=== PATIENT | female | born 1980 | race Caucasian/White ===

== ENCOUNTER → 2017-12-28 16:41 | Outpatient (CLI) | payer BC, SELFPAY ==
[2017-12-28 17:34] LABS: Absolute Lymphocyte Count 2.42 X10^3/ul (0.83-4.51); Absolute Neutrophil Count 3.5 X10^3/uL (2.0-7.7); Basophil# 0.02 X10^3/uL; Basophil% 0.3 % (0-1); Eosinophil# 0.19 X10^3/uL; Eosinophils% 2.9 % (0-5); Hematocrit 39.9 % (37-47); Hemoglobin 13.1 g/dl (12.0-15.0); Lymphocyte # 2.42 X10^3/ul (4.0); Lymphocyte % 37.2 % (19-41); Mean Corp Hgb Conc 32.8 g/gl (32-36); Mean Corpuscular Hgb 32.3 pg (27.0-32.0); Mean Corpuscular Volume 98.5 fL (81-99); Mean Platelet Vol. 8.9 fl (6.2-12.0); Monocyte# 0.35 X10^3/uL; Monocyte% 5.4 % (0-10); Neutrophil # 3.51 X10^3/uL (2.7-7.7); Platelet Count 332 K/mm3 (150-450); RBC Distribution Width SD 47.4 fl (35.1-43.9); Red Blood Count 4.05 M/mm3 (4.2-5.4); White Blood Count 6.5 K/mm3 (4.4-11.0)
[2017-12-28 17:42] LABS: POSITIVE COUNT NO; POSITIVE DIFFERENTIAL NO; POSITIVE MORPHOLOGY NO
[2017-12-28 18:02] LABS: AST(SGOT) 15 U/L (15-37); Alanine Aminotransfer ALT/SGPT 18 U/L (13-56); Albumin, Serum 3.7 g/dL (3.2-5.0); Alkaline Phosphatase 49 U/L (45-117); Anion Gap 9 (5-15); BUN 14 mg/dL (7-18); BUN/Creat Ratio 17.3 RATIO (10-20); CRP 7.88 mg/L (0.0-3.0); Calcium,Total 8.8 mg/dL (8.5-10.1); Chloride 107 mmol/L (98-107); Creatinine, Serum 0.81 mg/dL (0.55-1.02); EST Glomerular Filtration Rate 85 mL/min (>60); Est Glom Filt Rate - Afr Amer 103 mL/min (>60); Globulin 3.8 g/dL (2.2-4.2); Glucose 128 mg/dL (74-106); Potassium 3.8 mmol/L (3.5-5.1); Protein, Total 7.5 g/dL (6.4-8.2); Sodium Level 142 mmol/L (136-145)
[2017-12-28 18:45] LABS: Erythrocyte Sedimentation Rate 4 mm/hr (0-20)
[2018-01-01 12:23] LABS: Anti-Cardiolipin Ab, IgA, Qn < 9 APL U/mL (0-11); Anti-Cardiolipin Ab, IgG, Qn < 9 GPL U/mL (0-14); Anti-Cardiolipin Ab, IgM, Qn 19 MPL U/mL (0-12)
== END ==
PROVIDERS: Family Provider Family Medicine; PCP Family Medicine; Visit Provider Internal Medicine Rheumatology
DX: L40.59 Other psoriatic arthropathy (principal); L40.8 Other psoriasis; R76.0 Raised antibody titer
CPT/HCPCS: 36415; 80053; 85025; 85652; 86140; 86147

== ENCOUNTER → 2018-03-18 13:52 | Outpatient (CLI) | payer BC, SELFPAY ==
--- NOTE | 2018-03-18 14:01 | ECHOD_ITS ---
Reason For Study: Murmur Procedure This was a 2D Doppler, Color Flow transthoracic echocardiogram. The exam was of adequate technical quality. Exam performed in department. Left Ventricle Normal LV size. Left ventricular systolic function is normal. The estimated ejection fraction is 70 %. Normal diastology for age. No regional wall motion abnormalities noted. Right Ventricle Normal RV size. Normal systolic function. Atria Normal left atrium. Normal right atrium. No doppler evidence for ASD. Mitral Valve There is no mitral annular calcification. Normal mitral valve. Trivial mitral valve insufficiency. Tricuspid Valve Normal tricuspid valve. Trivial tricuspid valve insufficiency. Right ventricular systolic pressure estimated to be 28 mmHg. Aortic Valve Trisinus/trileaflet aortic valve. Normal aortic valve. Pulmonic Valve The pulmonic valve is not well visualized. Great Vessels Normal sized aortic root. Pericardium/Pleural No pericardial effusion. MMode/2D Measurements & Calculations LVIDd: 4.1 cm IVSd: 0.88 cm Ao root diam: 2.7 cm LVIDs: 2.6 cm LVPWd: 0.87 cm LA dimension: 3.1 cm FS: 36.9 % LAV(MOD-bp): 41.8 ml LA A4 area: 17.6 cm2 RA A4 area: 12.1 cm2 LAV(MOD-bp) Indexed: 24.4 ml/m2 LAV(MOD-sp2): 33.6 ml LAV(MOD-sp4): 48.3 ml Time Measurements MV dec time: 0.23 sec Doppler Measurements & Calculations MV E max jhonatan: 119.2 cm/sec Lat Peak E' Jhonatan: 16.5 cm/sec Med Peak E' Jhonatan: 14.7 cm/sec MV A max jhonatan: 85.7 cm/sec E/E' lat: 7.2 E/E' med: 8.1 MV E/A: 1.4 MV V2 max: 128.3 cm/sec MV P1/2t max jhonatan: 127.6 cm/sec Ao V2 max: 178.7 cm/sec MV max P.6 mmHg MV P1/2t: 86.4 msec Ao max P.8 mmHg MV V2 mean: 73.8 cm/sec MV dec slope: 432.3 cm/sec2 Ao V2 mean: 104.8 cm/sec MV mean P.6 mmHg MVA(P1/2t): 2.5 cm2 Ao mean P.3 mmHg MV V2 VTI: 31.5 cm Ao V2 VTI: 29.8 cm LV V1 max: 139.5 cm/sec PA V2 max: 137.7 cm/sec TR max jhonatan: 249.6 cm/sec LV V1 max P.8 mmHg TR max P.9 mmHg LV V1 mean P.8 mmHg LV V1 mean: 89.9 cm/sec LV V1 VTI: 27.2 cm Interpretation Summary Left ventricular systolic function is normal. The estimated ejection fraction is 70 %. Trivial mitral valve insufficiency. Trivial tricuspid valve insufficiency. Right ventricular systolic pressure estimated to be 28 mmHg. Normal diastology for age. Ordering Physician: Sandro Kohler Referring Physician: DOCTOR, OUT OF TOWN Performed By: Brodwolf, Felix, RCS
== END ==
PROVIDERS: Family Provider Family Medicine; PCP Family Medicine
DX: I35.8 Other nonrheumatic aortic valve disorders (principal)
CPT/HCPCS: 93306

== ENCOUNTER 2018-05-11 14:29 | Emergency (ER) | payer BC, SELFPAY ==
[2018-05-11 14:30] VITALS: BP 163/99; PULSE 115; RESP 20; TEMP 37.3; O2SAT 99; BMI 27.3
--- NOTE | 2018-05-11 14:47 | ED.VISSUMM ---
- ER Visit Summary Date of Service: 05/11/18 Chief Complaint: beesting to the lip History of Present Illness: The patient is a 37 F who presents 1 hour after a bee sting to the upper lip. Patient was drinking canned beverage and a bee within it. The bee stung her on the inside of the lip, and she noted it was a yellow jacket. She is having significant swelling of the lip and right cheek. She denies any sensation of her tongue or throat swelling, shortness of breath, lightheadedness or dizziness, wheezing, urticaria, pruritus, chest pain, nausea or vomiting. She has no history of anaphylaxis to bee stings. She has history of psoriatic arthritis, psoriasis, and lupus. Physical Examination: Vital signs: afebrile, hemodynamically stable, no hypoxia on room air General: well nourished, well developed, in no distress Skin: warm, dry, no rash, no pallor no urticaria HEENT: normocephalic and atraumatic; PERRL, EOMI, significant edema to the upper lip and right lower lip, right cheek. No edema in the intraoral space, sublingual, posterior oropharynx, or tongue. Airway is patent. Moist mucous membranes that lesions. Single punctate erythematous aure on the mucosal surface of the right upper lip consistent with a bee sting. Cardiovascular: Tachycardic rate and regular rhythm without murmurs, no peripheral edema, 2+ pulses all distal extremities Respiratory: No increased work of breathing, lungs are clear to auscultation bilaterally, no rales, rhonchi or wheezing Abdominal: Abdomen is soft, nontender with normoactive bowel sounds, no guarding or rebound, no masses MSK: Moves all extremities, no deformities, normal strength Neuro: Awake and alert, oriented ?4. No facial droop, sensation and motor function intact and symmetric Test Results: Medications Given Discontinued Medications Diphenhydramine HCl (Benadryl) 50 mg PO X1 ONE Stop: 05/11/18 14:48 Last Admin: 05/11/18 15:01 Dose: 50 mg Famotidine (Pepcid) 20 mg PO X1 ONE Stop: 05/11/18 14:48 Last Admin: 05/11/18 15:01 Dose: 20 mg Prednisone () 40 mg PO X1 ONE Stop: 05/11/18 14:47 Last Admin: 05/11/18 15:01 Dose: 40 mg Emergency Department Course and Treatment: Patient presents with significant facial and upper lip swelling after being stung by a yellow jacket on the inner upper lip. Patient has no airway compromise and no systemic symptoms concerning for severe allergic reaction or anaphylaxis. The swelling is simply localized to the area of the sting. Patient had ice pack applied. Patient was given Benadryl, prednisone and Pepcid. No epinephrine was necessary. Patient was observed for a period of time and had improvement in the swelling. She continued to maintain a patent airway with no other systemic symptoms of an allergic reaction. Patient was discharged home on a course of prednisone and Benadryl to use as needed. Return precautions given. Patient discharged home in improved condition. Treatment Plan: [] Disposition: [] Impression: Localized allergic reaction from yellow jacket sting, facial and lip swelling This note was generated with [employer] dictation software. It may contain incorrect words, spelling, and punctuation that were not noted in review of the chart prior to signing ED Disposition - Plan for ED Patient: Disposition: Home or Assisted Living Chief Complaint: Allergic Reaction Instructions: ED Bite Sting Insect Local Allergic React Prescriptions: DiphenhydrAMINE [Benadryl] 50 mg PO TID PRN PRN #30 cap PRN Reason: Allergies Prednisone 4 tab PO DAILY 5 Days #20 tab Referrals: Gabriela Mckeon MD [Primary Care Provider] - 1-2 Days if not improving Additional Instructions: Return immediately if at any time you begin having shortness of breath, sensation of your throat or tongue swelling, dizziness or lightheadedness, development of hives, or any worsening of your condition. Use the Benadryl and prednisone as prescribed. If you have any worsening of your condition or any new concerning symptoms, please return immediately to the emergency department for another evaluation.
[2018-05-11] MEDS: DiphenhydrAMINE 25 MG Capsule 50 MG PO (15:01)
[2018-05-11] MEDS: predniSONE 20 MG Tablet 40 MG PO (15:01)
[2018-05-11] MEDS: Famotidine 20 MG Tablet PO (15:01)
[2018-05-11 15:04] VITALS: PULSE 85; RESP 15; O2SAT 98
--- NOTE | 2018-05-11 16:35 | ED.DEP ---
ED Disposition - Plan for ED Patient: Disposition: Home or Assisted Living Chief Complaint: Allergic Reaction Instructions: ED Bite Sting Insect Local Allergic React Prescriptions: DiphenhydrAMINE [Benadryl] 50 mg PO TID PRN PRN #30 cap PRN Reason: Allergies Prednisone 4 tab PO DAILY 5 Days #20 tab Referrals: Gabriela Mckeon MD [Primary Care Provider] - 1-2 Days if not improving Additional Instructions: Return immediately if at any time you begin having shortness of breath, sensation of your throat or tongue swelling, dizziness or lightheadedness, development of hives, or any worsening of your condition. Use the Benadryl and prednisone as prescribed. If you have any worsening of your condition or any new concerning symptoms, please return immediately to the emergency department for another evaluation.
[2018-05-11 16:45] VITALS: PULSE 83; RESP 16; O2SAT 100
--- NOTE | 2018-05-11 16:46 | ED.RN ---
pt given written and verbal discharge instructions and home going prescriptions. pt verbalizes understanding. pt educated on signs and sx to return to ed. pt verbalizes understanding and is to follow up with pcp in 1-2 days.
== END 2018-05-11 16:54 | disposition home or self-care (01) ==
PROVIDERS: Emergency Provider Emergency Medicine; Family Provider Family Medicine; PCP Family Medicine
DX: T63.461A Toxic effect of venom of wasps, accidental (unintentional), initial encounter (principal); R22.0 Localized swelling, mass and lump, head; Y92.9 Unspecified place or not applicable; L40.50 Arthropathic psoriasis, unspecified
CPT/HCPCS: 99283

== ENCOUNTER → 2018-06-21 16:36 | Outpatient (CLI) | payer BC, SELFPAY ==
[2018-06-21 17:45] LABS: Absolute Lymphocyte Count 2.59 X10^3/ul (0.83-4.51); Absolute Neutrophil Count 4.4 X10^3/uL (2.0-7.7); Basophil# 0.03 X10^3/uL; Basophil% 0.4 % (0-1); Eosinophil# 0.27 X10^3/uL; Eosinophils% 3.5 % (0-5); Hemoglobin 13.1 g/dl (12.0-15.0); Lymphocyte # 2.59 X10^3/ul (4.0); Lymphocyte % 33.3 % (19-41); Mean Corp Hgb Conc 32.8 g/gl (32-36); Mean Corpuscular Hgb 33.3 pg (27.0-32.0); Mean Corpuscular Volume 101.8 fL (81-99); Mean Platelet Vol. 9.1 fl (6.2-12.0); Monocyte# 0.49 X10^3/uL; Monocyte% 6.3 % (0-10); Neutrophil # 4.38 X10^3/uL (2.7-7.7); Neutrophil % 56.4 % (47-70); Platelet Count 356 K/mm3 (150-450); RBC Distribution Width CV 13.3 % (11.6-14.6); Red Blood Count 3.93 M/mm3 (4.2-5.4); White Blood Count 7.8 K/mm3 (4.4-11.0)
[2018-06-21 17:55] LABS: International Normalized Ratio 0.9; Prothrombin Time (Protime)PT. 12.5 SECONDS (11.7-14.9)
[2018-06-21 17:56] LABS: Partial Thromboplast Time 29.6 Seconds (24.1-36.2)
[2018-06-21 17:57] LABS: POSITIVE COUNT NO; POSITIVE DIFFERENTIAL NO; POSITIVE MORPHOLOGY NO
[2018-06-21 18:06] LABS: Erythrocyte Sedimentation Rate 6 mm/hr (0-20)
[2018-06-21 18:10] LABS: ALB/GLOB Ratio 0.9 RATIO (0.9-2.4); AST(SGOT) 11 U/L (15-37); Alanine Aminotransfer ALT/SGPT 18 U/L (13-56); Albumin, Serum 3.5 g/dL (3.2-5.0); Alkaline Phosphatase 50 U/L (45-117); Anion Gap 9 (5-15); BUN 18 mg/dL (7-18); BUN/Creat Ratio 17.8 RATIO (10-20); Calcium,Total 9.1 mg/dL (8.5-10.1); Chloride 106 mmol/L (98-107); Creatinine, Serum 1.01 mg/dL (0.55-1.02); EST Glomerular Filtration Rate 65 mL/min (>60); Est Glom Filt Rate - Afr Amer 79 mL/min (>60); Globulin 3.7 g/dL (2.2-4.2); Glucose 98 mg/dL (74-106); Potassium 3.8 mmol/L (3.5-5.1); Protein, Total 7.2 g/dL (6.4-8.2); Sodium Level 142 mmol/L (136-145)
[2018-06-24 13:29] LABS: Thrombin Time 15.2 sec (0.0-23.0)
[2018-06-25 07:08] LABS: Dilute Prothrombin Time (dPT) 40.6 sec (0.0-55.0); Dilute Russell Viper Venom Mix 43.6 sec (0.0-47.0); Hexagonal Phase Phospholipid 7 sec (0-11); PTT-LA 39.4 sec (0.0-51.9); Thrombin Time 15.2 sec (0.0-23.0); dPT Confirm Ratio 1.18 Ratio (0.00-1.40)
[2018-06-25 09:35] LABS: Interpretation Comment: (.)
== END ==
PROVIDERS: Family Provider Family Medicine; PCP Family Medicine; Referring Provider Internal Medicine Rheumatology; Visit Provider Internal Medicine Rheumatology
DX: L40.59 Other psoriatic arthropathy (principal); R76.0 Raised antibody titer
CPT/HCPCS: 36415; 80053; 85025; 85598; 85610; 85652; 85670; 85730; 86140; 86147

== ENCOUNTER → 2018-06-24 16:24 | Outpatient (CLI) | payer BC, SELFPAY ==
[2018-06-27 08:11] LABS: Anti-Cardiolipin Ab, IgG, Qn < 9 GPL U/mL (0-14); Anti-Cardiolipin Ab, IgM, Qn 15 MPL U/mL (0-12)
[2018-06-27 08:12] LABS: Anti-Cardiolipin Ab, IgA, Qn < 9 APL U/mL (0-11)
== END ==
PROVIDERS: Family Provider Family Medicine; PCP Family Medicine; Referring Provider Internal Medicine Rheumatology; Visit Provider Internal Medicine Rheumatology
DX: L40.59 Other psoriatic arthropathy (principal); R76.0 Raised antibody titer
CPT/HCPCS: 86147

== ENCOUNTER → 2018-12-13 16:20 | Outpatient (CLI) | payer BC, SELFPAY ==
[2018-12-13 17:37] LABS: Absolute Lymphocyte Count 2.23 X10^3/ul (0.83-4.51); Absolute Neutrophil Count 3.9 X10^3/uL (2.0-7.7); Basophil# 0.02 X10^3/uL; Basophil% 0.3 % (0-1); Eosinophil# 0.14 X10^3/uL; Eosinophils% 2.1 % (0-5); Hematocrit 42.3 % (37-47); Hemoglobin 14.3 g/dl (12.0-15.0); Lymphocyte # 2.23 X10^3/ul (4.0); Lymphocyte % 32.8 % (19-41); Mean Corp Hgb Conc 33.8 g/gl (32-36); Mean Corpuscular Hgb 33.4 pg (27.0-32.0); Mean Corpuscular Volume 98.8 fL (81-99); Mean Platelet Vol. 9.2 fl (6.2-12.0); Monocyte# 0.44 X10^3/uL; Monocyte% 6.5 % (0-10); Neutrophil # 3.94 X10^3/uL (2.7-7.7); Platelet Count 357 K/mm3 (150-450); RBC Distribution Width CV 13.4 % (11.6-14.6); RBC Distribution Width SD 47.9 fl (35.1-43.9); Red Blood Count 4.28 M/mm3 (4.2-5.4); White Blood Count 6.8 K/mm3 (4.4-11.0)
[2018-12-13 17:48] LABS: ALB/GLOB Ratio 1.1 RATIO (0.9-2.4); AST(SGOT) 16 U/L (15-37); Alanine Aminotransfer ALT/SGPT 25 U/L (13-56); Albumin, Serum 3.9 g/dL (3.2-5.0); Alkaline Phosphatase 59 U/L (45-117); Anion Gap 7 (5-15); BUN 10 mg/dL (7-18); BUN/Creat Ratio 11.3 RATIO (10-20); Chloride 106 mmol/L (98-107); Creatinine, Serum 0.88 mg/dL (0.55-1.02); EST Glomerular Filtration Rate 76 mL/min (>60); Est Glom Filt Rate - Afr Amer 92 mL/min (>60); Globulin 3.5 g/dL (2.2-4.2); Glucose 106 mg/dL (74-106); Protein, Total 7.4 g/dL (6.4-8.2); Sodium Level 139 mmol/L (136-145)
[2018-12-13 17:53] LABS: POSITIVE COUNT NO; POSITIVE DIFFERENTIAL NO; POSITIVE MORPHOLOGY NO
[2018-12-13 18:06] LABS: Erythrocyte Sedimentation Rate 5 mm/hr (0-20)
== END ==
PROVIDERS: Family Provider Family Medicine; PCP Family Medicine; Referring Provider Internal Medicine Rheumatology; Visit Provider Internal Medicine Rheumatology
DX: L40.59 Other psoriatic arthropathy (principal); L40.8 Other psoriasis; R76.0 Raised antibody titer
CPT/HCPCS: 36415; 80053; 85025; 85652; 86140

== ENCOUNTER → 2018-12-23 08:04 | Outpatient (CLI) | payer BC, SELFPAY ==
[2018-12-23 10:14] LABS: Internal QC Validated? YES +Cl - CLEAR BKGD; Pregnancy, Urine Negative Negative
[2018-12-23 10:15] LABS: Absolute Lymphocyte Count 2.35 X10^3/ul (0.83-4.51); Absolute Neutrophil Count 5.4 X10^3/uL (2.0-7.7); Basophil# 0.02 X10^3/uL; Basophil% 0.2 % (0-1); Eosinophil# 0.11 X10^3/uL; Eosinophils% 1.3 % (0-5); Hematocrit 41.4 % (37-47); Hemoglobin 13.5 g/dl (12.0-15.0); Lymphocyte # 2.35 X10^3/ul (4.0); Mean Corp Hgb Conc 32.6 g/gl (32-36); Mean Corpuscular Hgb 32.4 pg (27.0-32.0); Mean Corpuscular Volume 99.3 fL (81-99); Mean Platelet Vol. 9.1 fl (6.2-12.0); Monocyte# 0.51 X10^3/uL; Monocyte% 6.1 % (0-10); Neutrophil # 5.36 X10^3/uL (2.7-7.7); POSITIVE COUNT NO; POSITIVE DIFFERENTIAL NO; POSITIVE MORPHOLOGY NO; Platelet Count 350 K/mm3 (150-450); RBC Distribution Width CV 13.5 % (11.6-14.6); Red Blood Count 4.17 M/mm3 (4.2-5.4); White Blood Count 8.4 K/mm3 (4.4-11.0)
[2018-12-23 10:25] LABS: AST(SGOT) 9 U/L (15-37); Alanine Aminotransfer ALT/SGPT 22 U/L (13-56); Albumin, Serum 3.5 g/dL (3.2-5.0); Alkaline Phosphatase 56 U/L (45-117); Anion Gap 8 (5-15); BUN 12 mg/dL (7-18); BUN/Creat Ratio 14.5 RATIO (10-20); Chloride 107 mmol/L (98-107); Creatinine, Serum 0.83 mg/dL (0.55-1.02); EST Glomerular Filtration Rate 82 mL/min (>60); Est Glom Filt Rate - Afr Amer 99 mL/min (>60); Globulin 3.5 g/dL (2.2-4.2); Glucose 97 mg/dL (74-106); Potassium 3.6 mmol/L (3.5-5.1); Sodium Level 141 mmol/L (136-145)
== END ==
PROVIDERS: Family Provider Family Medicine; PCP Family Medicine; Referring Provider Internal Medicine Rheumatology; Visit Provider Internal Medicine Rheumatology
DX: L40.59 Other psoriatic arthropathy (principal); L40.8 Other psoriasis; R76.0 Raised antibody titer; M79.7 Fibromyalgia
CPT/HCPCS: 36415; 80053; 81025; 85025

== ENCOUNTER → 2019-02-21 16:51 | Outpatient (CLI) | payer BC, SELFPAY ==
[2019-02-21 17:39] LABS: Absolute Lymphocyte Count 1.94 X10^3/ul (0.83-4.51); Absolute Neutrophil Count 5.1 X10^3/uL (2.0-7.7); Basophil# 0.02 X10^3/uL; Basophil% 0.3 % (0-1); Eosinophil# 0.13 X10^3/uL; Eosinophils% 1.7 % (0-5); Hematocrit 38.7 % (37-47); Hemoglobin 13.1 g/dl (12.0-15.0); Lymphocyte # 1.94 X10^3/ul (4.0); Lymphocyte % 25.5 % (19-41); Mean Corp Hgb Conc 33.9 g/gl (32-36); Mean Corpuscular Hgb 33.5 pg (27.0-32.0); Mean Platelet Vol. 9.2 fl (6.2-12.0); Monocyte# 0.41 X10^3/uL; Monocyte% 5.4 % (0-10); Neutrophil # 5.11 X10^3/uL (2.7-7.7); POSITIVE COUNT NO; POSITIVE DIFFERENTIAL NO; POSITIVE MORPHOLOGY NO; Platelet Count 362 K/mm3 (150-450); RBC Distribution Width CV 13.6 % (11.6-14.6); RBC Distribution Width SD 48.3 fl (35.1-43.9); Red Blood Count 3.91 M/mm3 (4.2-5.4); White Blood Count 7.6 K/mm3 (4.4-11.0)
[2019-02-21 18:21] LABS: ALB/GLOB Ratio 1.1 RATIO (0.9-2.4); AST(SGOT) 13 U/L (15-37); Alanine Aminotransfer ALT/SGPT 16 U/L (13-56); Albumin, Serum 3.8 g/dL (3.2-5.0); Alkaline Phosphatase 61 U/L (45-117); Anion Gap 6 (5-15); BUN 7 mg/dL (7-18); BUN/Creat Ratio 8.8 RATIO (10-20); Chloride 106 mmol/L (98-107); Creatinine, Serum 0.79 mg/dL (0.55-1.02); EST Glomerular Filtration Rate 86 mL/min (>60); Est Glom Filt Rate - Afr Amer 104 mL/min (>60); Globulin 3.4 g/dL (2.2-4.2); Glucose 114 mg/dL (74-106); Potassium 3.7 mmol/L (3.5-5.1); Protein, Total 7.2 g/dL (6.4-8.2); Sodium Level 137 mmol/L (136-145)
== END ==
PROVIDERS: Family Provider Family Medicine; PCP Family Medicine; Referring Provider Internal Medicine Rheumatology; Visit Provider Internal Medicine Rheumatology
DX: L40.59 Other psoriatic arthropathy (principal); L40.8 Other psoriasis; R76.0 Raised antibody titer; M79.7 Fibromyalgia
CPT/HCPCS: 36415; 80053; 85025

== ENCOUNTER → 2019-03-04 10:54 | Outpatient (CLI) | payer BC, SELFPAY ==
[2019-03-04 12:17] LABS: Internal QC Validated? YES +Cl - CLEAR BKGD
[2019-03-04 12:18] LABS: Pregnancy, Urine Negative Negative
== END ==
PROVIDERS: Family Provider Family Medicine; PCP Family Medicine; Referring Provider Internal Medicine Rheumatology; Visit Provider Internal Medicine Rheumatology
DX: L40.59 Other psoriatic arthropathy (principal); L40.8 Other psoriasis; R76.0 Raised antibody titer; M79.7 Fibromyalgia
CPT/HCPCS: 81025

== ENCOUNTER → 2019-05-09 11:37 | Outpatient (CLI) | payer BC, SELFPAY ==
[2019-05-09 14:27] LABS: Absolute Lymphocyte Count 2.02 X10^3/uL (0.83-4.51); Absolute Neutrophil Count 4.3 X10^3/uL (2.0-7.7); Basophil# 0.04 X10^3/uL; Basophil% 0.6 % (0-1); Eosinophil# 0.14 X10^3/uL; Hematocrit 42.2 % (37-47); Hemoglobin 13.9 g/dL (12.0-15.0); Lymphocyte # 2.02 X10^3/ul (4.0); Mean Corp Hgb Conc 32.9 g/dL (32-36); Mean Corpuscular Hgb 33.8 pg (27.0-32.0); Mean Corpuscular Volume 102.7 fL (81-99); Mean Platelet Vol. 9.1 fl (6.2-12.0); Monocyte# 0.43 X10^3/uL; Monocyte% 6.2 % (0-10); NRBC Flagged by Analyzer 0 % (0-5); Neutrophil % 61.8 % (47-70); Platelet Count 399 K/mm3 (150-450); RBC Distribution Width CV 13.7 % (11.6-14.6); RBC Distribution Width SD 51.9 fl (35.1-43.9); Red Blood Count 4.11 M/mm3 (4.2-5.4)
[2019-05-09 14:46] LABS: ALB/GLOB Ratio 0.9 RATIO (0.9-2.4); AST(SGOT) 13 U/L (15-37); Alanine Aminotransfer ALT/SGPT 25 U/L (13-56); Albumin, Serum 3.7 g/dL (3.2-5.0); Alkaline Phosphatase 63 U/L (45-117); Anion Gap 6 (5-15); BUN 11 mg/dL (7-18); BUN/Creat Ratio 12.2 RATIO (10-20); Calcium,Total 9.1 mg/dL (8.5-10.1); Chloride 104 mmol/L (98-107); EST Glomerular Filtration Rate 74 mL/min (>60); Est Glom Filt Rate - Afr Amer 90 mL/min (>60); Globulin 3.9 g/dL (2.2-4.2); Glucose 118 mg/dL (74-106); Potassium 3.9 mmol/L (3.5-5.1); Protein, Total 7.6 g/dL (6.4-8.2); Sodium Level 136 mmol/L (136-145)
== END ==
PROVIDERS: Family Provider Family Medicine; PCP Family Medicine; Referring Provider Internal Medicine Rheumatology; Visit Provider Internal Medicine Rheumatology
DX: L40.59 Other psoriatic arthropathy (principal); L40.8 Other psoriasis; R76.0 Raised antibody titer; M79.7 Fibromyalgia
CPT/HCPCS: 36415; 80053; 85025

== ENCOUNTER → 2019-07-07 16:17 | Outpatient (CLI) | payer BC, SELFPAY ==
[2019-07-07 17:54] LABS: ALB/GLOB Ratio 0.9 RATIO (0.9-2.4); AST(SGOT) 17 U/L (15-37); Alanine Aminotransfer ALT/SGPT 33 U/L (13-56); Albumin, Serum 3.6 g/dL (3.2-5.0); Alkaline Phosphatase 62 U/L (45-117); Anion Gap 7 (5-15); BUN 10 mg/dL (7-18); BUN/Creat Ratio 12.4 RATIO (10-20); Calcium,Total 9.4 mg/dL (8.5-10.1); Chloride 104 mmol/L (98-107); Creatinine, Serum 0.81 mg/dL (0.55-1.02); EST Glomerular Filtration Rate 84 mL/min (>60); Est Glom Filt Rate - Afr Amer 102 mL/min (>60); Glucose 101 mg/dL (74-106); Potassium 3.7 mmol/L (3.5-5.1); Protein, Total 7.6 g/dL (6.4-8.2); Sodium Level 138 mmol/L (136-145)
[2019-07-07 17:59] LABS: Absolute Lymphocyte Count 2.43 X10^3/uL (0.83-4.51); Basophil# 0.04 X10^3/uL; Basophil% 0.7 % (0-1); Eosinophil# 0.11 X10^3/uL; Eosinophils% 1.8 % (0-5); Hematocrit 40.3 % (37-47); Hemoglobin 13.2 g/dL (12.0-15.0); Lymphocyte # 2.43 X10^3/ul (4.0); Mean Corp Hgb Conc 32.8 g/dL (32-36); Mean Corpuscular Hgb 33.5 pg (27.0-32.0); Mean Corpuscular Volume 102.3 fL (81-99); Mean Platelet Vol. 8.8 fl (6.2-12.0); Monocyte# 0.44 X10^3/uL; Monocyte% 7.2 % (0-10); NRBC Flagged by Analyzer 0 % (0-5); Neutrophil # 3.04 X10^3/uL (2.7-7.7); POSITIVE MORPHOLOGY YES; Platelet Count 444 K/mm3 (150-450); RBC Distribution Width CV 13.4 % (11.6-14.6); RBC Distribution Width SD 50.6 fl (35.1-43.9); Red Blood Count 3.94 M/mm3 (4.2-5.4); White Blood Count 6.1 K/mm3 (4.4-11.0)
[2019-07-07 18:06] LABS: Differential Indicated SCAN CRITERIA MET
[2019-07-07 18:40] LABS: Differential Comment SCANNED; Macrocytosis 1+; Platelet Estimate ADEQUATE (ADEQ); Reactive Lymphocyte 1+
== END ==
PROVIDERS: Family Provider Family Medicine; PCP Family Medicine; Referring Provider Internal Medicine Rheumatology; Visit Provider Internal Medicine Rheumatology
DX: L40.59 Other psoriatic arthropathy (principal); Z79.899 Other long term (current) drug therapy; M79.7 Fibromyalgia
CPT/HCPCS: 36415; 80053; 85025

== ENCOUNTER → 2019-08-05 10:17 | Outpatient (CLI) | payer BC, SELFPAY | PROVIDERS: Family Provider Family Medicine; PCP Family Medicine; Visit Provider Family Medicine | DX: R73.09 Other abnormal glucose (principal) | CPT/HCPCS: 83036 ==

== ENCOUNTER → 2019-08-25 09:48 | Outpatient (CLI) | payer BC, SELFPAY ==
[2019-08-25 13:58] LABS: T4 Total, Thyroxin 10.6 ug/dL (4.8-13.9); Thyroid Stim Hormone (TSH) 2.32 uIU/mL (0.358-3.74)
== END ==
PROVIDERS: Family Provider Family Medicine; PCP Family Medicine; Referring Provider Family Medicine; Visit Provider Family Medicine
DX: E03.9 Hypothyroidism, unspecified (principal)
CPT/HCPCS: 36415; 84436; 84443

== ENCOUNTER → 2020-02-02 11:48 | Outpatient (CLI) | payer BC, SELFPAY ==
[2020-02-02 17:14] LABS: Hemoglobin A1c 5.4 % (3.8-5.6)
== END ==
PROVIDERS: PCP Family Medicine; Referring Provider Family Medicine; Visit Provider Family Medicine
DX: R73.09 Other abnormal glucose (principal)
CPT/HCPCS: 36415; 83036

== ENCOUNTER → 2020-02-11 06:47 | Outpatient (CLI) | payer BC, SELFPAY ==
[2020-02-11 07:58] LABS: Glucose GTT- Fasting 103 mg/dL (74-106)
[2020-02-11 08:00] LABS: Glucose GTT-30 minutes 219 mg/dL (110-170)
[2020-02-11 08:12] LABS: Glucose GTT- 1 Hour 171 mg/dL (120-170)
[2020-02-11 09:38] LABS: Glucose GTT- 2 Hour 127 mg/dL (70-120)
[2020-02-11 10:59] LABS: Glucose GTT- 3 Hour 74 mg/dL (74-106)
[2020-02-11 11:57] LABS: Glucose GTT- 4 Hour 63 mg/dL (74-106)
== END ==
PROVIDERS: PCP Family Medicine; Referring Provider Family Medicine; Visit Provider Family Medicine
DX: R55 Syncope and collapse (principal)
CPT/HCPCS: 36415; 82951; 82952

== ENCOUNTER → 2020-04-12 12:37 | Outpatient (CLI) | payer BC, SELFPAY ==
[2020-04-12 15:49] LABS: AST(SGOT) 15 U/L (15-37); Alanine Aminotransfer ALT/SGPT 20 U/L (13-56); Albumin, Serum 3.8 g/dL (3.2-5.0); Alkaline Phosphatase 34 U/L (45-117); Anion Gap 5 (5-15); BUN 12 mg/dL (7-18); BUN/Creat Ratio 14.7 RATIO (10-20); Bilirubin, Direct 0.12 mg/dL (0.00-0.30); Calcium,Total 9.2 mg/dL (8.5-10.1); Chloride 107 mmol/L (98-107); Creatinine, Serum 0.82 mg/dL (0.55-1.02); EST Glomerular Filtration Rate 82 mL/min (>60); Est Glom Filt Rate - Afr Amer 100 mL/min (>60); Globulin 3.6 g/dL (2.2-4.2); Glucose 96 mg/dL (74-106); Protein, Total 7.4 g/dL (6.4-8.2); Sodium Level 138 mmol/L (136-145)
[2020-04-12 18:25] LABS: Hematocrit 41.2 % (37-47); Hemoglobin 13.6 g/dL (12.0-15.0); Mean Corpuscular Hgb 32.9 pg (27.0-32.0); Mean Corpuscular Volume 99.5 fL (81-99); Mean Platelet Vol. 9.7 fl (6.2-12.0); Platelet Count 367 K/mm3 (150-450); RBC Distribution Width CV 13.5 % (11.6-14.6); Red Blood Count 4.14 M/mm3 (4.2-5.4); White Blood Count 6.3 K/mm3 (4.4-11.0)
== END ==
PROVIDERS: PCP Family Medicine
DX: Z79.899 Other long term (current) drug therapy (principal)
CPT/HCPCS: 36415; 80048; 80076; 85027

== ENCOUNTER → 2020-05-06 06:28 | Outpatient (CLI) | payer BC, SELFPAY ==
[2020-04-29 14:02] VITALS: BMI 27.3
--- NOTE | 2020-05-06 06:29 | MRI_ITS ---
STUDY: MRI BRAIN WITH AND WITHOUT CONTRAST REASON FOR EXAM: Female, 39 years old. syncope, episodes TECHNIQUE: Standardized multiplanar fat and water weighted pulse sequences were obtained. IV Yes YES was administered for the contrast portion of the examination. COMPARISON: None. FINDINGS: Normal size of the ventricles and extra-axial spaces for the patient''s age. There are multiple scattered nonspecific tiny punctate white matter lesions in the frontal and parietal lobes bilaterally without mass effect or restricted diffusion. Normal bilateral basal ganglia. Normal thalami. There is no extra-axial fluid accumulation. Normal flow voids within the major intracranial circulation suggesting patency by spin echo criteria. Normal venous enhancement. There is no enhancing intra-axial or extra-axial abnormality. Normal sella turcica, pituitary gland, infundibular stalk, optic chiasm and hypothalamus. Normal tectal plate and pineal gland. Normal midbrain, airam and medulla. Normal cerebellum. Normal basal cisterns. Normal bilateral temporal bones. Normal bilateral internal auditory canals. No demonstrated orbital abnormality, within the constraints of a routine brain study. Normal visualized paranasal sinuses. Normal calvarium and skull base. Normal visualized soft tissue structures. Normal visualized upper cervical spine. MRI/Brain W/WO Contrast IMPRESSION: Nonspecific periventricular white matter disease.. Etiology is indeterminate. Differential diagnosis includes small vessel ischemic changes, demyelinating disease, inflammatory disease including Lyme disease or prior posttraumatic bland contusions. Clinical correlation recommended No enhancing lesions following contrast administration. Electronically Signed: Hadley Dietz MD at 16:34 EDT , Service support ,
== END ==
PROVIDERS: PCP Family Medicine; Referring Provider Psychiatry & Neurology Neurology; Visit Provider Psychiatry & Neurology Neurology
DX: R55 Syncope and collapse (principal)
CPT/HCPCS: 70553; A9575

== ENCOUNTER → 2020-05-14 06:36 | Outpatient (CLI) | payer BC, SELFPAY ==
[2020-04-29 14:02] VITALS: BMI 27.3
[2020-05-14 07:48] LABS: Cholesterol 224 mg/dL (200); High Density Lipoprotein 40 mg/dL; Triglycerides 173 mg/dL; Very Low Density Lipoprotein 35 mg/dL (5-40)
== END ==
PROVIDERS: Nurse Practitioner Family; PCP Family Medicine; Referring Provider Psychiatry & Neurology Neurology; Visit Provider Psychiatry & Neurology Neurology
DX: I67.9 Cerebrovascular disease, unspecified (principal)
CPT/HCPCS: 36415; 80061

== ENCOUNTER → 2020-05-17 11:52 | Outpatient (CLI) | payer BC, SELFPAY ==
[2020-04-29 14:02] VITALS: BMI 27.3
== END ==
PROVIDERS: PCP Family Medicine; Referring Provider Psychiatry & Neurology Neurology; Visit Provider Psychiatry & Neurology Neurology
DX: R55 Syncope and collapse (principal)

== ENCOUNTER → 2020-05-21 07:44 | Outpatient (CLI) | payer BC, SELFPAY ==
[2020-04-29 14:02] VITALS: BMI 27.3
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
== END ==
PROVIDERS: PCP Family Medicine; Referring Provider Nurse Practitioner Family; Visit Provider Nurse Practitioner Family
DX: I67.9 Cerebrovascular disease, unspecified (principal)
CPT/HCPCS: 70496; 70498; Q9967

== ENCOUNTER → 2020-06-03 06:39 | Outpatient (CLI) | payer BC, SELFPAY ==
[2020-04-29 14:02] VITALS: BMI 27.3
--- NOTE | 2020-06-03 08:42 | TELEMED_ITS ---
[facility] has confirmed receipt of a request for visit. This document confirms receipt of the order initiating the consult. To find the results of the consultation, please view the patient's reports for the scanned Telemed Consult.
== END ==
PROVIDERS: PCP Family Medicine; Referring Provider Psychiatry & Neurology Neurology; Visit Provider Psychiatry & Neurology Neurology
DX: R55 Syncope and collapse (principal)
CPT/HCPCS: 95819

== ENCOUNTER → 2020-07-01 16:07 | Outpatient (CLI) | payer BC, SELFPAY ==
[2020-04-29 14:02] VITALS: BMI 27.3
[2020-07-01 16:56] LABS: Hematocrit 43.4 % (37-47); Hemoglobin 14.3 g/dL (12.0-15.0); Mean Corp Hgb Conc 32.9 g/dL (32-36); Mean Corpuscular Hgb 33.3 pg (27.0-32.0); Mean Corpuscular Volume 101.2 fL (81-99); Platelet Count 338 K/mm3 (150-450); RBC Distribution Width CV 13.5 % (11.6-14.6); RBC Distribution Width SD 50.4 fl (35.1-43.9); Red Blood Count 4.29 M/mm3 (4.2-5.4); White Blood Count 4.9 K/mm3 (4.4-11.0)
[2020-07-01 17:13] LABS: Erythrocyte Sedimentation Rate 2 mm/hr (0-20)
[2020-07-05 14:25] LABS: ANTINUCLEAR ANTIBODIES DIRECT Negative (Negative)
[2020-07-07 14:09] LABS: Complement C3 142 mg/dL (82-167); Dilute Prothrombin Time (dPT) 33.8 sec (0.0-55.0); Dilute Russell Viper Venom 39.6 sec (0.0-47.0); PTT-LA 36.2 sec (0.0-51.9); Thrombin Time 19.3 sec (0.0-23.0); dPT Confirm Ratio 0.94 Ratio (0.00-1.40)
[2020-07-07 14:55] LABS: Anti-Cardiolipin Ab, IgA, Qn < 9 APL U/mL (0-11); Anti-Cardiolipin Ab, IgG, Qn < 9 GPL U/mL (0-14); Anti-Cardiolipin Ab, IgM, Qn 33 MPL U/mL (0-12); Antithrombin 3 Function 107 % (75-135); Complement CH50 44 U/mL (>41); Interpretation Comment: (.); Protein C Antigen 47 % (60-150); Protein S, Free 112 % (57-157); Protein S, Funtional 80 % (63-140); Protein S, Total 86 % (60-150)
== END ==
PROVIDERS: PCP Family Medicine; Visit Provider Psychiatry & Neurology Neurology
DX: I67.9 Cerebrovascular disease, unspecified (principal)
CPT/HCPCS: 36415; 81240; 81241; 85027; 85300; 85302; 85303; 85305; 85306; 85652; 86038; 86147; 86160; 86162; 86225; 86235

== ENCOUNTER → 2021-03-04 06:47 | Outpatient (CLI) | payer BC, SELFPAY ==
[2020-12-22 09:32] VITALS: BMI 27.3
[2021-03-04 07:57] LABS: Cholesterol 118 mg/dL (200); High Density Lipoprotein 32 mg/dL; Triglycerides 114 mg/dL; Very Low Density Lipoprotein 23 mg/dL (5-40)
== END ==
PROVIDERS: PCP Family Medicine; Referring Provider Psychiatry & Neurology Neurology; Visit Provider Psychiatry & Neurology Neurology
DX: E78.5 Hyperlipidemia, unspecified (principal)
CPT/HCPCS: 36415; 80061

== ENCOUNTER → 2021-05-23 06:35 | Outpatient (CLI) | payer BC, SELFPAY ==
[2021-05-26 05:07] LABS: Dilute Russell Viper Venom 38.1 sec (0.0-47.0); Immunoglobulin G 846 mg/dL (586-1602); PTT-LA 37.4 sec (0.0-51.9); Thrombin Time 19.5 sec (0.0-23.0)
[2021-05-26 07:59] LABS: Beta-2-Glycoprotein I IgA <9 (0-25); Beta-2-Glycoprotein I IgG <9 (0-20); Beta-2-Glycoprotein I IgM <9 (0-32); Dilute Prothrombin Time (dPT) 36.6 sec (0.0-55.0); Immunoglobulin M 49 mg/dL (26-217); Interpretation Comment: (.); dPT Confirm Ratio 1.11 Ratio (0.00-1.40)
== END ==
PROVIDERS: PCP Family Medicine
DX: R76.0 Raised antibody titer (principal)
CPT/HCPCS: 36415; 82784; 86146

== ENCOUNTER → 2021-05-31 14:41 | Outpatient (CLI) | payer BC, SELFPAY ==
--- NOTE | 2021-05-31 14:44 | BI_ITS ---
MAMMOGRAPHY - BILATERAL SCREENING REASON FOR EXAM: Female, 40 years old. Routine annual screening examination. PERTINENT HISTORY: Non-contributory. TECHNIQUE: Digital bilateral breast eleonora (3D mammographic acquisition) in the CC and MLO projections. 2-D mediolateral oblique (MLO) and craniocaudad (CC) views of both breasts were obtained. CAD: Full Field Digital Mammography with Computer Added Detection was performed. COMPARISON: None. Baseline examination. FINDINGS: Breast Composition: The breasts are heterogeneously dense, which may obscure small masses. 1.4 cm x 1.2 cm nodule in the deep upper lateral aspect of the right breast. Correlation with ultrasound is recommended. Benign appearing bilateral axillary lymph nodes. No other significant abnormalities are identified. BI/SCRN MAMM (CAD)W/ELEONORA BILAT IMPRESSION: 1.4 cm x 1.2 cm nodular density in the upper deep lateral aspect of the right breast. Correlation with ultrasound is recommended. ASSESSMENT CATEGORY: BIRADS Category 0: Incomplete. Need additional imaging evaluation. A letter regarding these results will be sent to the patient by the facility within 30 days. Approximately 10% of breast cancers are not detected by mammography. A normal mammogram should not delay biopsy of a clinically suspicious abnormality. [id number] Electronically Signed: Pal Robledo MD at 15:45 EDT , Service support ,
== END ==
PROVIDERS: PCP Family Medicine; Visit Provider Obstetrics & Gynecology Obstetrics
DX: Z12.31 Encounter for screening mammogram for malignant neoplasm of breast (principal)
CPT/HCPCS: 77063; 77067

== ENCOUNTER → 2021-06-07 11:01 | Outpatient (CLI) | payer BC, SELFPAY ==
--- NOTE | 2021-06-07 11:05 | US_ITS ---
STUDY: ULTRASOUND BREAST - RIGHT REASON FOR EXAM: Female, 40 years old. Abnormal screening mammogram. TECHNIQUE: Axial and longitudinal images of the RIGHT breast were performed with a high resolution ultrasound transducer. # OF IMAGES: 32 COMPARISON: Comparison is made with prior mammogram dated 05/31/2021. FINDINGS: RIGHT Breast: The upper lateral aspect of the right breast was examined by ultrasound. There is evidence of dense fibroglandular tissue. No solid or cystic mass lesion is seen. Routine mammographic follow-up is recommended. US/Breast Limited Unilateral IMPRESSION: Dense fiber glandular tissue. No sonographic abnormality is seen. ASSESSMENT CATEGORY: BIRADS Category 2: Benign. A letter regarding these results will be sent to the patient by the facility within 30 days. Electronically Signed: Pal Robledo MD at 12:10 EDT , Service support ,
== END ==
PROVIDERS: PCP Family Medicine; Referring Provider Obstetrics & Gynecology Obstetrics; Visit Provider Obstetrics & Gynecology Obstetrics
DX: R92.8 Other abnormal and inconclusive findings on diagnostic imaging of breast (principal)
CPT/HCPCS: 76642

== ENCOUNTER 2021-08-30 06:56 | Outpatient (CLI) | payer BC, SELFPAY ==
[2021-08-30 08:44] LABS: AST(SGOT) 23 U/L (15-37); Alanine Aminotransfer ALT/SGPT 39 U/L (13-56); Alkaline Phosphatase 78 U/L (45-117); Bilirubin, Direct 0.18 mg/dL (0.00-0.30); Cholesterol 125 mg/dL (200); Globulin 3.2 g/dL (2.2-4.2); High Density Lipoprotein 32 mg/dL; Protein, Total 7.2 g/dL (6.4-8.2); Triglycerides 127 mg/dL; Very Low Density Lipoprotein 25 mg/dL (5-40)
== END 2021-08-30 23:59 | disposition short-term general hospital (02) ==
LOC: LAB 06:58
PROVIDERS: PCP Family Medicine; Referring Provider Psychiatry & Neurology Neurology; Visit Provider Psychiatry & Neurology Neurology
DX: E78.00 Pure hypercholesterolemia, unspecified (principal)
CPT/HCPCS: 36415; 80061; 80076

== ENCOUNTER 2021-11-09 15:51 | Outpatient (CLI) | payer BC, SELFPAY ==
[2021-11-14 13:26] LABS: Protein C Antigen 39 % (60-150); Protein C, Functional 59 % (73-180)
== END 2021-11-09 23:59 | disposition home or self-care (01) ==
PROVIDERS: PCP Family Medicine; Referring Provider Internal Medicine Hematology & Oncology; Visit Provider Internal Medicine Hematology & Oncology
DX: D68.59 Other primary thrombophilia (principal)
CPT/HCPCS: 36415; 85302; 85303

== ENCOUNTER → 2022-03-16 | Outpatient (CLI) | payer BC, SELFPAY ==
[2022-03-16 08:39] LABS: Vitamin B12 421 pg/mL (211-911)
[2022-03-16 08:49] LABS: Cholesterol 104 mg/dL (200); High Density Lipoprotein 35 mg/dL; Triglycerides 67 mg/dL; Very Low Density Lipoprotein 13 mg/dL (5-40)
== END | disposition home or self-care (01) ==
PROVIDERS: PCP Family Medicine; Referring Provider Psychiatry & Neurology Neurology; Visit Provider Psychiatry & Neurology Neurology
DX: D75.89 Other specified diseases of blood and blood-forming organs (principal); E78.00 Pure hypercholesterolemia, unspecified
CPT/HCPCS: 36415; 80061; 82607; 82746

== ENCOUNTER → 2022-06-29 | Outpatient (CLI) | payer OTHER, SELFPAY ==
--- NOTE | 2022-06-29 07:09 | BI_ITS ---
MAMMOGRAPHY - BILATERAL SCREENING REASON FOR EXAM: Female, 41 years old. Routine annual screening examination. PERTINENT HISTORY: Non-contributory. TECHNIQUE: Digital bilateral breast eleonora (3D mammographic acquisition) in the CC and MLO projections. 2-D mediolateral oblique (MLO) and craniocaudad (CC) views of both breasts were obtained. CAD: Full Field Digital Mammography with Computer Added Detection was performed. COMPARISON: Comparison is made with prior study dated 05/31/2021. FINDINGS: Breast Composition: The breasts are heterogeneously dense, which may obscure small masses. Possible 1.1 cm x 1 cm nodular density in the slightly upper central portion of the left breast. The patient will be recalled for additional views of the left breast including 90 degree lateral and compression spot views. Stable small benign appearing bilateral axillary nodes. No other significant abnormalities are identified. BI/SCRN MAMM (CAD)W/ELEONORA BILAT IMPRESSION: Questionable 1.1 cm x 1 some nodular density in the slightly upper central portion of the left breast as described. The patient will be recalled for additional views of the left breast including 90 degree lateral and compression spot Recall Side: Left Breast ASSESSMENT CATEGORY: BIRADS Category 0: Incomplete. Need additional imaging evaluation. A letter regarding these results will be sent to the patient by the facility within 30 days. Approximately 10% of breast cancers are not detected by mammography. A normal mammogram should not delay biopsy of a clinically suspicious abnormality. [id number] Electronically Signed: Pal Robledo MD at 8:31 EST ,
== END | disposition home or self-care (01) ==
LOC: OPBI 07:07
PROVIDERS: PCP Family Medicine; Referring Provider Obstetrics & Gynecology Obstetrics; Visit Provider Obstetrics & Gynecology Obstetrics
DX: Z12.31 Encounter for screening mammogram for malignant neoplasm of breast (principal)
CPT/HCPCS: 77063; 77067

== ENCOUNTER → 2022-07-04 | Outpatient (CLI) | payer OTHER, SELFPAY ==
[2022-07-04 12:32] LABS: Absolute Neutrophil Count 8.7 X10^3/uL (2.0-7.7); Basophil# 0.05 X10^3/uL; Basophil% 0.4 % (0-1); Eosinophil# 0.19 X10^3/uL; Eosinophils% 1.7 % (0-5); Hemoglobin 14.7 g/dL (12.0-15.0); Lymphocyte % 15.1 % (19-41); Mean Corpuscular Hgb 35.3 pg (27.0-32.0); Mean Corpuscular Volume 100.7 fL (81-99); Mean Platelet Vol. 9.1 fl (6.2-12.0); Monocyte# 0.55 X10^3/uL; Monocyte% 4.9 % (0-10); NRBC Flagged by Analyzer 0 % (0-5); Neutrophil # 8.73 X10^3/uL (2.7-7.7); Neutrophil % 77.6 % (47-70); Platelet Count 304 K/mm3 (150-450); RBC Distribution Width CV 12.8 % (11.6-14.6); RBC Distribution Width SD 47.8 fl (35.1-43.9); Red Blood Count 4.17 M/mm3 (4.2-5.4); White Blood Count 11.3 K/mm3 (4.4-11.0)
[2022-07-04 13:08] LABS: AST(SGOT) 13 U/L (15-37); Alanine Aminotransfer ALT/SGPT 30 U/L (13-56); Albumin, Serum 3.8 g/dL (3.2-5.0); Alkaline Phosphatase 68 U/L (45-117); Creatinine, Serum 0.68 mg/dL (0.55-1.02); EST Glomerular Filtration Rate 100 mL/min (>60); Est Glom Filt Rate - Afr Amer 121 mL/min (>60); Globulin 3.4 g/dL (2.2-4.2); Protein, Total 7.2 g/dL (6.4-8.2)
== END | disposition home or self-care (01) ==
LOC: LAB 11:38
PROVIDERS: PCP Family Medicine
DX: Z79.899 Other long term (current) drug therapy (principal)
CPT/HCPCS: 36415; 80076; 82565; 85025

== ENCOUNTER → 2022-07-12 | Outpatient (CLI) | payer OTHER, SELFPAY ==
--- NOTE | 2022-07-12 14:37 | BI_ITS ---
MAMMOGRAPHY - UNILATERAL DIAGNOSTIC: LEFT BREAST REASON FOR EXAM: Female, 41 years old. Abnormal screening mammogram. PERTINENT HISTORY: Non-contributory. TECHNIQUE: Compression spot views of the left breast in the mediolateral oblique and craniocaudal projections were obtained. CAD: Full Field Digital Mammography with Computer Added Detection was performed. COMPARISON: Comparison is made with prior mammogram dated 06/29/2022. FINDINGS: Breast Composition: The breasts are heterogeneously dense, which may obscure small masses. There are no dominant masses or suspicious calcifications. No other significant abnormalities are identified. BI/DIAG MAMM W/CAD, UNILAT IMPRESSION: Negative unilateral diagnostic mammogram. Correlation with ultrasound of the upper central portion of the left breast is recommended for further evaluation. ASSESSMENT CATEGORY: BIRADS Category 0: Incomplete. Need additional imaging evaluation. A letter regarding these results will be sent to the patient by the facility within 30 days. Approximately 10% of breast cancers are not detected by mammography. A normal mammogram should not delay biopsy of a clinically suspicious abnormality. Electronically Signed: Pal Robledo MD at 15:07 EST ,
--- NOTE | 2022-07-12 14:37 | US_ITS ---
STUDY: ULTRASOUND BREAST - LEFT REASON FOR EXAM: Female, 41 years old. Abnormal screening mammogram. TECHNIQUE: Axial and longitudinal images of the LEFT breast were performed with a high resolution ultrasound transducer. # OF IMAGES: 49 COMPARISON: Comparison is made with prior mammogram done earlier today as well as prior mammogram dated 06/29/2022. FINDINGS: LEFT Breast: The lateral half of the left breast was examined by ultrasound. There are multiple small cysts seen. The largest cyst measures 7 mm x 8 mm x 3 mm. This is at the 12 o''clock position of the breast at 3 cm from the nipple. US/Breast Limited Unilateral IMPRESSION: Multiple small cysts are seen in the lateral half of the left breast as described. The largest cyst measures 7 mm x 8 mm x 3 mm. This is at the 12 o''clock position of the breast at 3 cm from nipple. ASSESSMENT CATEGORY: BIRADS Category 2: Benign. A letter regarding these results will be sent to the patient by the facility within 30 days. Electronically Signed: Pal Robledo MD at 15:31 EST ,
== END | disposition home or self-care (01) ==
LOC: OPBI 14:34
PROVIDERS: PCP Family Medicine
DX: N60.02 Solitary cyst of left breast (principal); R92.8 Other abnormal and inconclusive findings on diagnostic imaging of breast
CPT/HCPCS: 76642; 77065

== ENCOUNTER → 2022-08-16 | Outpatient (CLI) | payer OTHER, SELFPAY ==
[2022-08-16 13:37] LABS: T4 Total, Thyroxin 6.2 ug/dL (4.8-13.9)
== END | disposition home or self-care (01) ==
LOC: MFPLAB 10:10
PROVIDERS: PCP Family Medicine; Visit Provider Family Medicine
DX: E03.9 Hypothyroidism, unspecified (principal)
CPT/HCPCS: 36415; 84436; 84443

== ENCOUNTER → 2023-02-09 | Outpatient (CLI) | payer OTHER, SELFPAY ==
[2023-02-09 11:15] LABS: Hematocrit 44.1 % (37-47); Mean Corpuscular Hgb 34.5 pg (27.0-32.0); Mean Corpuscular Volume 101.4 fL (81-99); Mean Platelet Vol. 9.2 fl (6.2-12.0); Platelet Count 315 K/mm3 (150-450); RBC Distribution Width CV 12.8 % (11.6-14.6); RBC Distribution Width SD 48.1 fl (35.1-43.9); Red Blood Count 4.35 M/mm3 (4.2-5.4); White Blood Count 6.1 K/mm3 (4.4-11.0)
[2023-02-09 11:30] LABS: AST(SGOT) 17 U/L (15-37); Alanine Aminotransfer ALT/SGPT 25 U/L (13-56); Creatinine, Serum 0.78 mg/dL (0.55-1.02); EST Glomerular Filtration Rate 86 mL/min (>60); Est Glom Filt Rate - Afr Amer 104 mL/min (>60); T4 Total, Thyroxin 6.7 ug/dL (4.8-13.9); Thyroid Stim Hormone (TSH) 2.37 uIU/mL (0.358-3.74)
== END | disposition home or self-care (01) ==
LOC: LAB 09:23
PROVIDERS: PCP Family Medicine; Referring Provider Internal Medicine Rheumatology; Visit Provider Internal Medicine Rheumatology
DX: Z79.899 Other long term (current) drug therapy (principal)
CPT/HCPCS: 82565; 84436; 84443; 84450; 84460; 85027

== ENCOUNTER 2023-05-25 16:52 | Outpatient (RCR) | payer OTHER, SELFPAY ==
[2023-05-25 17:12] LABS: Hematocrit 43.5 % (37-47); Hemoglobin 14.3 g/dL (12.0-15.0); Mean Corp Hgb Conc 32.9 g/dL (32-36); Mean Corpuscular Hgb 33.9 pg (27.0-32.0); Mean Corpuscular Volume 103.1 fL (81-99); Mean Platelet Vol. 8.8 fl (6.2-12.0); Platelet Count 301 K/mm3 (150-450); RBC Distribution Width CV 12.5 % (11.6-14.6); RBC Distribution Width SD 47.8 fl (35.1-43.9); Red Blood Count 4.22 M/mm3 (4.2-5.4); White Blood Count 8.6 K/mm3 (4.4-11.0)
[2023-05-25 17:27] LABS: AST(SGOT) 12 U/L (15-37); Alanine Aminotransfer ALT/SGPT 26 U/L (13-56); Creatinine, Serum 0.76 mg/dL (0.55-1.02); EST Glomerular Filtration Rate 89 mL/min (>60); Est Glom Filt Rate - Afr Amer 108 mL/min (>60)
== END 2023-05-25 18:00 | disposition home or self-care (01) ==
LOC: LAB 16:52
PROVIDERS: PCP Family Medicine; Referring Provider Internal Medicine Rheumatology; Visit Provider Internal Medicine Rheumatology
DX: Z79.899 Other long term (current) drug therapy (principal)
CPT/HCPCS: 36415; 82565; 84450; 84460; 85027

== ENCOUNTER → 2023-08-03 | Outpatient (CLI) | payer OTHER, SELFPAY ==
--- NOTE | 2023-08-03 12:30 | BI_ITS ---
MAMMOGRAPHY - BILATERAL SCREENING 3-D TOMOSYNTHESIS REASON FOR EXAM: Female, 42 years old. SCREENING PERTINENT HISTORY: No significant family history. TECHNIQUE: 2-D mammograms and 3-D Tomosynthesis of the breast (s) were performed. CAD was performed. COMPARISON: 06/29/2022 FINDINGS: The breast composition is heterogeneously dense that can obscure small breast masses. Scattered benign calcifications are seen. No dense spiculated masses or suspicious microcalcifications are identified. No architectural distortion is identified. There is no skin thickening or retraction. There has been no significant change since the prior study. BI/SCRN MAMM (CAD)W/ELEONORA BILAT IMPRESSION: No mammographic signs of malignancy. Routine yearly mammograms recommended. ASSESSMENT CATEGORY: BIRADS Category 2: Benign. A letter regarding these results will be sent to the patient by the facility within 30 days. FOLLOW UP RECOMMENDATION: Yearly follow up mammogram recommended. (A) Approximately 10% of breast cancers are not detected by mammography. A normal mammogram should not delay biopsy of a clinically suspicious abnormality. Electronically Signed: Tony Richmond MD at 12:08 EST ,
== END | disposition home or self-care (01) ==
LOC: OPBI 12:29
PROVIDERS: PCP Family Medicine; Referring Provider Obstetrics & Gynecology Obstetrics; Visit Provider Obstetrics & Gynecology Obstetrics
DX: Z12.31 Encounter for screening mammogram for malignant neoplasm of breast (principal)
CPT/HCPCS: 77063; 77067

== ENCOUNTER 2023-09-04 16:11 | Outpatient (RCR) | payer OTHER, SELFPAY ==
[2023-09-04 16:33] LABS: Hematocrit 40.1 % (37-47); Hemoglobin 13.4 g/dL (12.0-15.0); Mean Corp Hgb Conc 33.4 g/dL (32-36); Mean Corpuscular Volume 101.8 fL (81-99); Mean Platelet Vol. 8.8 fl (6.2-12.0); Platelet Count 297 K/mm3 (150-450); RBC Distribution Width CV 12.8 % (11.6-14.6); RBC Distribution Width SD 48.4 fl (35.1-43.9); Red Blood Count 3.94 M/mm3 (4.2-5.4); White Blood Count 7.1 K/mm3 (4.4-11.0)
[2023-09-04 17:03] LABS: AST(SGOT) 15 U/L (15-37); Alanine Aminotransfer ALT/SGPT 39 U/L (13-56); Creatinine, Serum 0.73 mg/dL (0.55-1.02); EST Glomerular Filtration Rate 93 mL/min (>60); Est Glom Filt Rate - Afr Amer 112 mL/min (>60)
== END 2023-09-04 18:00 | disposition home or self-care (01) ==
LOC: LAB 16:11
PROVIDERS: PCP Family Medicine; Referring Provider Internal Medicine Rheumatology; Visit Provider Internal Medicine Rheumatology
DX: Z79.899 Other long term (current) drug therapy (principal)
CPT/HCPCS: 36415; 82565; 84450; 84460; 85027

== ENCOUNTER 2024-01-12 07:06 | Outpatient (RCR) | payer OTHER, SELFPAY ==
[2024-01-12 08:06] LABS: Hemoglobin 14.2 g/dL (12.0-15.0); Mean Corpuscular Volume 102.9 fL (81-99); Mean Platelet Vol. 8.9 fl (6.2-12.0); Platelet Count 326 K/mm3 (150-450); RBC Distribution Width CV 12.9 % (11.6-14.6); RBC Distribution Width SD 48.8 fl (35.1-43.9); Red Blood Count 4.18 M/mm3 (4.2-5.4); White Blood Count 7.6 K/mm3 (4.4-11.0)
[2024-01-12 08:43] LABS: AST(SGOT) 15 U/L (15-37); Alanine Aminotransfer ALT/SGPT 35 U/L (13-56); Cholesterol 114 mg/dL (200); Creatinine, Serum 0.84 mg/dL (0.55-1.02); EST Glomerular Filtration Rate 79 mL/min (>60); Est Glom Filt Rate - Afr Amer 96 mL/min (>60); High Density Lipoprotein 34 mg/dL; Thyroid Stim Hormone (TSH) 3.76 uIU/mL (0.358-3.74); Triglycerides 87 mg/dL; Very Low Density Lipoprotein 17 mg/dL (5-40)
== END 2024-01-12 18:00 | disposition home or self-care (01) ==
LOC: LAB 07:06
PROVIDERS: PCP Family Medicine; Referring Provider Internal Medicine Rheumatology; Visit Provider Internal Medicine Rheumatology
DX: Z79.899 Other long term (current) drug therapy (principal)
CPT/HCPCS: 36415; 80061; 82565; 84436; 84443; 84450; 84460; 85027

== ENCOUNTER → 2024-06-03 | Outpatient (CLI) | payer OTHER, SELFPAY | END | disposition home or self-care (01) | LOC: LAB 16:19 | PROVIDERS: PCP Family Medicine; Referring Provider Family Medicine; Visit Provider Family Medicine | DX: E03.9 Hypothyroidism, unspecified (principal) | CPT/HCPCS: 36415; 84443 ==

== ENCOUNTER 2024-08-01 15:58 | Outpatient (RCR) | payer OTHER, SELFPAY ==
[2024-08-01 16:30] LABS: Absolute Lymphocyte Count 1.86 X10^3/uL (0.83-4.51); Absolute Neutrophil Count 5.3 X10^3/uL (2.0-7.7); Basophil# 0.05 X10^3/uL; Basophil% 0.6 % (0-1); Eosinophil# 0.22 X10^3/uL; Eosinophils% 2.8 % (0-5); Hematocrit 40.3 % (37-47); Hemoglobin 13.8 g/dL (12.0-15.0); Lymphocyte # 1.86 X10^3/ul (0.83-4.51); Lymphocyte % 23.3 % (19-41); Mean Corp Hgb Conc 34.2 g/dL (32-36); Mean Corpuscular Hgb 34.2 pg (27.0-32.0); Mean Platelet Vol. 8.9 fl (6.2-12.0); Monocyte# 0.56 X10^3/uL; NRBC Flagged by Analyzer 0 % (0-5); Neutrophil # 5.27 X10^3/uL (2.7-7.7); Platelet Count 323 K/mm3 (150-450); RBC Distribution Width CV 12.2 % (11.6-14.6); RBC Distribution Width SD 45.4 fl (35.1-43.9); Red Blood Count 4.03 M/mm3 (4.2-5.4)
[2024-08-01 16:36] LABS: Erythrocyte Sedimentation Rate < 1 mm/hr (0-30)
[2024-08-01 16:45] LABS: AST(SGOT) 13 U/L (15-37); Alanine Aminotransfer ALT/SGPT 32 U/L (13-56); CRP < 2.90 mg/L (0.0-3.0); Creatinine, Serum 0.73 mg/dL (0.55-1.02); EST Glomerular Filtration Rate 92 mL/min (>60); Est Glom Filt Rate - Afr Amer 111 mL/min (>60)
== END 2024-08-01 18:00 | disposition home or self-care (01) ==
LOC: LAB 15:58
PROVIDERS: PCP Family Medicine; Referring Provider Internal Medicine Rheumatology; Visit Provider Internal Medicine Rheumatology
DX: Z79.899 Other long term (current) drug therapy (principal)

== ENCOUNTER → 2024-09-05 | Outpatient (CLI) | payer OTHER, SELFPAY ==
--- NOTE | 2024-09-05 08:16 | BI_ITS ---
MAMMOGRAPHY - BILATERAL SCREENING REASON FOR EXAM: Female, 43 years old. Routine annual screening examination. PERTINENT HISTORY: Non-contributory. TECHNIQUE: Digital bilateral breast eleonora (3D mammographic acquisition) in the CC and MLO projections. 2-D mediolateral oblique (MLO) and craniocaudad (CC) views of both breasts were obtained. CAD: Full Field Digital Mammography with Computer Added Detection was performed. COMPARISON: Comparison is made with prior study dated August 03, 2023 and July 12, 2022. FINDINGS: Breast Composition: The breasts are heterogeneously dense, which may obscure small masses. There are no dominant masses or suspicious calcifications. Stable small benign-appearing bilateral maxillary lymph nodes. No other significant abnormalities are identified. There has been no significant change since the prior study. BI/SCRN MAMM (CAD)W/ELEONORA BILAT IMPRESSION: Stable bilateral screening mammogram. Yearly follow-up mammogram recommended. (A) ASSESSMENT CATEGORY: BIRADS Category 2: Benign. A letter regarding these results will be sent to the patient by the facility within 30 days. Approximately 10% of breast cancers are not detected by mammography. A normal mammogram should not delay biopsy of a clinically suspicious abnormality. [id number] Electronically Signed: Pal Robledo MD at 9:30 EST ,
== END | disposition home or self-care (01) ==
LOC: OPBI 08:14
PROVIDERS: PCP Family Medicine; Referring Provider Obstetrics & Gynecology Obstetrics; Visit Provider Obstetrics & Gynecology Obstetrics
DX: Z12.31 Encounter for screening mammogram for malignant neoplasm of breast (principal)
CPT/HCPCS: 77063; 77067

== ENCOUNTER → 2025-01-23 | Outpatient (CLI) | payer OTHER, SELFPAY ==
[2025-01-23 10:46] LABS: Erythrocyte Sedimentation Rate 1 mm/hr (0-30)
[2025-01-23 10:48] LABS: Absolute Lymphocyte Count 2.12 X10^3/uL (0.83-4.51); Absolute Neutrophil Count 3.5 X10^3/uL (2.0-7.7); Basophil# 0.05 X10^3/uL; Basophil% 0.8 % (0-1); Eosinophils% 3.1 % (0-5); Hematocrit 39.4 % (37-47); Hemoglobin 13.7 g/dL (12.0-15.0); Lymphocyte # 2.12 X10^3/ul (0.83-4.51); Lymphocyte % 33.1 % (19-41); Mean Corp Hgb Conc 34.8 g/dL (32-36); Mean Corpuscular Hgb 34.3 pg (27.0-32.0); Mean Corpuscular Volume 98.5 fL (81-99); Mean Platelet Vol. 9.1 fl (6.2-12.0); Monocyte# 0.52 X10^3/uL; Monocyte% 8.1 % (0-10); NRBC Flagged by Analyzer 0 % (0-5); Neutrophil # 3.49 X10^3/uL (2.7-7.7); Neutrophil % 54.6 % (47-70); Platelet Count 316 K/mm3 (150-450); RBC Distribution Width CV 12.1 % (11.6-14.6); RBC Distribution Width SD 44.2 fl (35.1-43.9); White Blood Count 6.4 K/mm3 (4.4-11.0)
[2025-01-23 10:50] LABS: Hemoglobin A1c 6.2 % (<=5.6)
[2025-01-23 15:53] LABS: AST(SGOT) 19 U/L (<=31); Alanine Aminotransfer ALT/SGPT < 5 U/L (<=34); CRP < 3.00 mg/L (0.0-3.0); Creatinine, Serum 0.83 mg/dL (0.70-1.20); EST Glomerular Filtration Rate 89 (>60)
[2025-01-23 18:29] LABS: Cholesterol 99 mg/dL (<=200); High Density Lipoprotein 36 mg/dL; Low Density Lipoprotein Calc. 52 mg/dL; Triglycerides 56 mg/dL; Very Low Density Lipoprotein 11 mg/dL (5-40); cholesterol:hdl ratio screen 2.76
== END | disposition home or self-care (01) ==
LOC: LAB 08:32
PROVIDERS: Family Medicine; Referring Provider Internal Medicine Rheumatology; Visit Provider Internal Medicine Rheumatology
DX: Z01.419 Encounter for gynecological examination (general) (routine) without abnormal findings (principal); Z79.899 Other long term (current) drug therapy; E03.9 Hypothyroidism, unspecified
CPT/HCPCS: 36415; 80061; 82565; 83036; 84439; 84443; 84450; 84460; 85025; 85652; 86140

== ENCOUNTER 2025-08-12 11:39 | Outpatient (RCR) | payer OTHER, SELFPAY ==
[2025-08-12 13:26] LABS: Hematocrit 39.9 % (37-47); Hemoglobin 13.8 g/dL (12.0-15.0); Immature Granulocytes Count 0.030 X10^3/uL (0.0-0.0); Mean Corp Hgb Conc 34.6 g/dL (32-36); Mean Corpuscular Volume 99.8 fL (81-99); Mean Platelet Vol. 9.3 fl (6.2-12.0); NRBC Flagged by Analyzer 0 % (0-5); Platelet Count 252 K/mm3 (150-450); RBC Distribution Width CV 12.5 % (11.6-14.6); RBC Distribution Width SD 44.7 fl (35.1-43.9); Red Blood Count 4.00 M/mm3 (4.2-5.4); White Blood Count 6.3 K/mm3 (4.4-11.0)
[2025-08-12 13:55] LABS: AST(SGOT) 27 U/L (<=31); Alanine Aminotransfer ALT/SGPT 33 U/L (<=34)
[2025-08-12 14:10] LABS: CRP < 3.00 mg/L (0.0-3.0)
== END 2025-08-12 18:00 | disposition home or self-care (01) ==
LOC: LAB 11:39
PROVIDERS: PCP Family Medicine; Referring Provider Internal Medicine Rheumatology; Visit Provider Internal Medicine Rheumatology
DX: Z79.899 Other long term (current) drug therapy (principal)
CPT/HCPCS: 36415; 82565; 84450; 84460; 85025; 85652; 86140